=== PATIENT | female | born 1975 | race Hispanic/Latino ===

== ENCOUNTER 2020-12-31 10:38 | Emergency (ER) | payer SELFPAY ==
--- NOTE | 2020-12-31 13:21 | RAD REPORT ---
EXAM DESCRIPTION: RAD - Hand Left 3 View - 12/31/2020 1:02 pm CLINICAL HISTORY: PAIN COMPARISON: None FINDINGS: Mild soft tissue swelling is seen adjacent to the fifth metacarpal. No acute fracture or d islocation is evident.
--- NOTE | 2020-12-31 13:22 | EDPHYS ---
Physician Documentation [facility] Name: Laila Marroquin Age: 45 yrs Sex: Female : 1975 Arrival Date: 12/31/2020 Time: 10:43 Bed 24 Private MD: ED Physician Chase Patten HPI: 12/31 12:35 This 45 yrs old Female presents to ER via Ambulatory with complaints of Hand jr8 Pain. 12:35 The patient or guardian reports decreased range of motion, pain, tenderness. The jr8 complaints affect the left hand diffusely. Onset: The symptoms/episode began/occurred acutely, yesterday. Modifying factors: The symptoms are alleviated by nothing, the symptoms are aggravated by movement. Associated signs and symptoms: The patient has no apparent associated signs or symptoms. Severity of symptoms: At their worst the symptoms were moderate, in the emergency department the symptoms are unchanged. The patient has not experienced similar symptoms in the past. The patient has not recently seen a physician. Patient stated that she jammed her left middle finger while at work. Has had pain to finger and now the rest of her hand and wrist. Historical: - Allergies: 10:56 No Known Allergies; sv - PMHx: 10:56 Hypertension; borderline diabetes; ovarian CA; sv - PSHx: 10:56 ; R wrist sx; sv - Immunization history:: Flu vaccine is not up to date. - Social history:: Smoking status: Patient reports the use of cigarette tobacco products, smokes one-half pack cigarettes per day. ROS: 12:35 Constitutional: Negative for fever, chills, and weight loss. jr8 12:35 MS/extremity: Positive for decreased range of motion, pain, tenderness, of the left hand. 12:35 All other systems are negative. Exam: 12:35 Constitutional: This is a well developed, well nourished patient who is awake, alert, jr8 and in no acute distress. Cardiovascular: Regular rate and rhythm with a normal S1 and S2. No gallops, murmurs, or rubs. Normal PMI, no JVD. No pulse deficits. Respiratory: Lungs have equal breath sounds bilaterally, clear to auscultation and percussion. No rales, rhonchi or wheezes noted. No increased work of breathing, no retractions or nasal flaring. Skin: Warm, dry with normal turgor. Normal color with no rashes, no lesions, and no evidence of cellulitis. Neuro: Awake and alert, GCS 15, oriented to person, place, time, and situation. Cranial nerves II-XII grossly intact. Motor strength 5/5 in all extremities. Sensory grossly intact. Cerebellar exam normal. Normal gait. 12:35 Musculoskeletal/extremity: Extremities: grossly normal except: noted in the left hand: Patient has pain to flexor portion of entire left middle finger and along the moe areas. Decreased ROM noted to left hand secondary to pain. Full Active ROM present with normal sensation , Circulation is intact in all extremities. Vital Signs: 10:56 BP 152 / 83; Pulse 76; Resp 17; Temp 97.8; Pulse Ox 97% ; Weight 74.84 kg; Height 5 ft. sv 3 in. (160.02 cm); Pain 10/10; 12:08 BP 146 / 87; Pulse 78; Resp 16; Pulse Ox 100% on R/A; vg1 10:56 Body Mass Index 29.23 (74.84 kg, 160.02 cm) sv MDM: 12:03 Patient medically screened. jr8 13:21 Data reviewed: vital signs, nurses notes, radiologic studies, plain films, and as a jr8 result, I will discharge patient. Data interpreted: Pulse oximetry: on room air is 100 %. Interpretation: normal. Counseling: I had a detailed discussion with the patient and/or guardian regarding: the historical points, exam findings, and any diagnostic results supporting the discharge/admit diagnosis, radiology results, the need for outpatient follow up, a hand specialist, to return to the emergency department if symptoms worsen or persist or if there are any questions or concerns that arise at home. 13:21 ED course: Continue to wear hand brace and follow up with ortho. Take NSAIDs for pain. jr8 Rest hand with ice and heat alternating for comfort. . 12/31 12:20 Order name: XRAY Hand LEFT 3 View; Complete Time: 13:23 vg1 Administered Medications: No medications were administered Disposition: 01/01 06:03 Co-signature as Attending Physician, Chase Patten MD I agree with the assessment and kdr plan of care. Disposition: 12/31/20 13:22 Discharged to Home. Impression: Sprain of other part of left wrist and hand. - Condition is Stable. - Discharge Instructions: Hand Pain. - Prescriptions for Ibuprofen 800 mg Oral Tablet - take 1 tablet by ORAL route every 12 hours As needed take with food; 20 tablet. - Medication Reconciliation Form, Thank You Letter, Antibiotic Education, Prescription Opioid Use, Work release form form. - Follow up: Thomas Lai MD; When: 2 - 3 days; Reason: Recheck today's complaints, Continuance of care, Re-evaluation by your physician. - Problem is new. - Symptoms have improved. Signatures: Dispatcher [employer] EDNubia Napier, RN RN sv Chase Patten MD MD [facility] Sundar Hope PA PA jr8 Angie Osorio RN RN vg1 Corrections: (The following items were deleted from the chart) 12/31 13:49 13:22 12/31/2020 13:22 Discharged to Home. Impression: Sprain of other part of left vg1 wrist and hand. Condition is Stable. Forms are Medication Reconciliation Form, Thank You Letter, Antibiotic Education, Prescription Opioid Use. Follow up: Thomas Lai; When: 2 - 3 days; Reason: Recheck today's complaints, Continuance of care, Re-evaluation by your physician. Problem is new. Symptoms have improved. jr8
--- NOTE | 2020-12-31 13:22 | ER ---
Nurse's Notes [facility] Name: Laila Marroquin Age: 45 yrs Sex: Female : 1975 Arrival Date: 12/31/2020 Time: 10:43 Bed 24 Private MD: Diagnosis: Sprain of other part of left wrist and hand Presentation: 12/31 10:56 Chief complaint: Patient states: Left hand pain increasing since Monday. Thought she sv jammed her mid finger at work. Now the whole hand hurts, can barely move it or make a fist. Coronavirus screen: Client denies travel out of the [place] in the last 14 days. At this time, the client does not indicate any symptoms associated with coronavirus-19. Ebola Screen: Patient denies travel to an Ebola-affected area in the 21 days before illness onset. Initial Sepsis Screen: Does the patient meet any 2 criteria? No. Patient's initial sepsis screen is negative. Does the patient have a suspected source of infection? Yes: Bone or joint infection. Risk Assessment: Do you want to hurt yourself or someone else? Patient reports no desire to harm self or others. Onset of symptoms was December 28, 2020. 10:56 Method Of Arrival: Ambulatory sv 10:56 Acuity: FLACO 3 sv Historical: - Allergies: 10:56 No Known Allergies; sv - PMHx: 10:56 Hypertension; borderline diabetes; ovarian CA; sv - PSHx: 10:56 ; R wrist sx; sv - Immunization history:: Flu vaccine is not up to date. - Social history:: Smoking status: Patient reports the use of cigarette tobacco products, smokes one-half pack cigarettes per day. Screenin:22 Abuse screen: Denies threats or abuse. Nutritional screening: No deficits noted. vg1 Tuberculosis screening: No symptoms or risk factors identified. Fall Risk No fall in past 12 months (0 pts). No secondary diagnosis (0 pts). IV access (20 points). Ambulatory Aid- None/Bed Rest/Nurse Assist (0 pts). Gait- Normal/Bed Rest/Wheelchair (0 pts) Mental Status- Oriented to own ability (0 pts). Total Carreno Fall Scale indicates No Risk (0-24 pts). Assessment: 12:08 General: Appears in no apparent distress. comfortable, Behavior is calm, cooperative. vg1 Pain: Complains of pain in left hand Pain currently is 10 out of 10 on a pain scale. Pain began 2-3 days ago. Noted to be grimacing. Neuro: Level of Consciousness is awake, alert, obeys commands, Oriented to person, place, time, situation. Cardiovascular: Patient's skin is warm and dry. Pulses are palpable in right radial artery and left radial artery. Respiratory: Airway is patent Respiratory effort is even, unlabored. GI: No signs and/or symptoms were reported involving the gastrointestinal system. : No signs and/or symptoms were reported regarding the genitourinary system. EENT: No signs and/or symptoms were reported regarding the EENT system. Derm: Skin is intact, is healthy with good turgor. Musculoskeletal: Swelling present in left hand. 12:20 Reassessment: Received VO from Sundar PLATT to order Xray of left hand. vg1 Vital Signs: 10:56 BP 152 / 83; Pulse 76; Resp 17; Temp 97.8; Pulse Ox 97% ; Weight 74.84 kg; Height 5 ft. sv 3 in. (160.02 cm); Pain 10/10; 12:08 BP 146 / 87; Pulse 78; Resp 16; Pulse Ox 100% on R/A; vg1 10:56 Body Mass Index 29.23 (74.84 kg, 160.02 cm) sv ED Course: 10:43 Patient arrived in ED. mr 10:55 Arm band placed on. sv 10:59 Triage completed. sv 12:03 Sundar Hope PA is PHCP. jr8 12:03 Chase Patten MD is Attending Physician. jr8 12:19 Angie Osorio, MING is Primary Nurse. vg1 12:22 Patient has correct armband on for positive identification. Bed in low position. Call vg1 light in reach. Side rails up X 1. 13:02 XRAY Hand LEFT 3 View In Process Unspecified. EDMS 13:22 Thomas Lai MD is Referral Physician. jr8 13:49 No provider procedures requiring assistance completed. Patient did not have IV access vg1 during this emergency room visit. Administered Medications: No medications were administered Outcome: 13:22 Discharge ordered by . jr8 13:49 Discharged to home ambulatory. vg1 13:49 Condition: stable 13:49 Discharge instructions given to patient, Instructed on discharge instructions, the need for admit, medication usage, Demonstrated understanding of instructions, follow-up care, medications, Prescriptions given X 1. 13:49 Patient left the ED. vg1 Signatures: Dispatcher [employer] Nubia Campos, Dottie Vale RN, Josh, PA PA jr8 Garcia, Victoria, RN RN vg1
[2020-12-31 13:55] VITALS: TEMP 97.8
[2020-12-31 13:56] VITALS: BP 146/87; O2SAT 100
== END 2020-12-31 13:49 | disposition home or self-care (01) ==
LOC: ER 10:38
DX: S63.8X2A Sprain of other part of left wrist and hand, initial encounter (principal); X58.XXXA Exposure to other specified factors, initial encounter; Y93.89 Activity, other specified; Y92.89 Other specified places as the place of occurrence of the external cause; Y99.8 Other external cause status; I10 Essential (primary) hypertension; F17.210 Nicotine dependence, cigarettes, uncomplicated
CPT/HCPCS: 99283

== ENCOUNTER 2021-05-17 12:36 | Emergency (ER) | payer SELFPAY ==
--- OUTSIDE RECORDS SUMMARY | 2021-05-17 12:39 | XMS REPORT | Continuity of Care Document ---
:1975 Author Organization [facility] t Address [address] [place] [address] Care Team Providers Name Role Phone Unavailable Unavailable Unavailable Payers Payer Name Policy Type Policy Number Effective Date Expiration Date S ource Problems Condition Condition Condition Status Onset Resolution Last Treating Co mments Source Name Details Category Date Date Treatment Clinician Date Diabetes Diabetes Problem Active [facility] Hyperlipid Hyperlipid Problem Active [facility] Mixed Mixed Problem Active [place] anxiety An[facility] depressive Depressive e disorder Disorder Neuropathy Neuropathy Problem Active [facility] Hypertensi Hypertensi Problem Active [facility] ve ve Family disorder Disorder Practi c e Allergies, Adverse Reactions, Alerts Allergy Allergy Status Severity Reaction(s) Onset Inactive Treating Comm ents Source Name Type Date Date Clinician nitrofur DA Active U 2018- [facility] anto[facility] 9 [place] 00:[facility]: e 00 [facility] nitrofur DA Active U [facility] 1-14 [facility] 00:00: [place] 00 [facility] MACROBID DA Active U 2005- [facility] 6-20 [place] 00:[facility]: e 00 [facility] No Known DA Active U [facility] Contrast -20 [facility] All[facility] 00:00: e s 00 [facility] No Known DA Active U 2005-0 [facility] Food 6-20 [facility] Allergie 00:00: e s 00 [facility] No Known DA Active U 2005-0 [facility] Other -20 [facility] Allergie 00:00: e s [facility] nitrofur DA Active U 2000-0 [facility] antoin 6-16 [facility] 00:00: e 00 [facility] Social History Smoking Status Start Date Stop Date Source Light Tobacco Smoker [facility] Medications Ordered Filled Start Stop Current Ordering Indication Dosage Frequency Signature Comments Components Source Medication Medication Date Date Medication? Clinician (SIG) Name Name Henry 10 Vickyien 10 No 1 Q1D Ambien 10 [place] mg tablet mg tablet mg tablet Family Take 1 Take 1 Take 1 Practic tablet tablet tablet e every day every day every day by oral by oral by oral route. route. route. diclofenac diclofenac No diclofenac [facility] 1 % topical 1 % topical 1 % F amily gel APPLY 2 gel APPLY 2 topical Practic GRAM TO THE GRAM TO THE gel APPLY e AFFECTED AFFECTED 2 GRAM TO AREA(S) BY AREA(S) BY THE TOPICAL TOPICAL AFFECTED ROUTE 4 ROUTE 4 AREA(S) BY TIMES PER TIMES PER TOPICAL DAY DAY ROUTE 4 TIMES PER DAY meloxicam meloxicam No 1 Q1D meloxicam [facility] 15 mg 15 mg 15 mg Family tablet Take tablet Take tablet Practic 1 tablet 1 tablet Take 1 e every day every day tablet by oral by oral every day route. take route. take by oral with food with food route. take with food sertraline sertraline No 1 Q1D sertraline [facility] 50 mg 50 mg 50 mg Family tablet Take tablet Take tablet Practic 1 tablet 1 tablet Take 1 e every day every day tablet by oral by oral every day route. take route. take by oral one & a one & a route. half half take one & tablets tablets a half daily for daily for tablets one week, one week, daily for then then one week, increase to increase to then two tablets two tablets increase daily. daily. to two tablets daily. Xanax 0.5 Xanax 0.5 No 1 TID Xanax 0.5 [facility] mg tablet mg tablet mg tablet Family Take 1 Take 1 Take 1 Practic tablet 3 tablet 3 tablet 3 e times a day times a day times a by oral by oral day by route as route as oral route needed. needed. as needed. acetaminoph acetaminoph 2018- No 1 Q5H acetaminop [facility] en 300 en 300 12-22 hen 300 Family mg-codeine mg-codeine 00:00 mg-codeine Pract[facility] 30 mg 30 mg :00 30 mg e tablet Take tablet Take tablet 1 tablet 1 tablet Take 1 every 4-6 every 4-6 tablet hours by hours by every 4-6 oral route oral route hours by as needed. as needed. oral route as needed. atenolol 50 atenolol 50 2017- atenolol [facility] mg tablet mg tablet 12-22 50 mg Fam allyssa 00:00 tablet Practic :00 e atorvastati atorvastati 2017- atorvastat [facility] n 10 mg n 10 mg 12-22 in 10 mg Fami ly tablet tablet 00:00 tablet Practic :00 e clonazepam clonazepam 2017- clonazepam [facility] 0.5 mg 0.5 mg 12-22 0.5 mg Family tablet tablet 00:00 tablet Practic :00 e cyclobenzap cyclobenzap 2017- cyclobenza [facility] rine 10 mg rine 10 mg 12-22 cristela 10 Family tablet tablet 00:00 mg tablet Pract ic :00 e duloxetine duloxetine 2017- duloxetine [facility] 30 mg 30 mg 12-22 30 mg Family capsule,del capsule,del 00:00 capsule,de Practic ayed ayed :00 layed e release release release duloxetine duloxetine 2017- duloxetine [facility] 60 mg 60 mg 12-22 60 mg Family capsule,del capsule,del 00:00 capsule,de Practic ayed ayed :00 layed e release release release gabapentin gabapentin 2017- gabapentin [facility] 300 mg 300 mg 12-22 300 mg Family capsule capsule 00:00 capsule Pract ic :00 e gabapentin gabapentin 2017- gabapentin [facility] 800 mg 800 mg 12-22 800 mg Family tablet tablet 00:00 tablet Practic :00 e hydrochloro hydrochloro 2017- hydrochlor [facility] thiazide 25 thiazide 25 12-22 othiazide Family mg tablet mg tablet 00:00 25 mg Pra ctic :00 tablet e metformin metformin 2017- metformin [facility] ER 500 mg ER 500 mg 12-22 ER 500 mg Family tablet,exte tablet,exte 00:00 tablet,ext Practic nded nded :00 ended e release 24 release 24 release 24 hr hr hr Plan B Plan B 2018- No Plan B [facility] One-Step One-Step 12-22 One-Step Fa tracey 1.5 mg 1.5 mg 00:00 1.5 mg Practic tablet tablet :00 tablet e polyethylen polyethylen polyethyle [facility] e glycol e glycol 12-22 ne glycol F amily 3350 17 3350 17 00:00 3350 17 Pract ic gram/dose gram/dose :00 gram/dose e oral powder oral powder oral powder Synthroid Synthroid Synthroid [facility] 50 mcg 50 mcg 12-22 50 mcg Family tablet tablet 00:00 tablet Practic :00 e trazodone trazodone trazodone [facility] 100 mg 100 mg 12-22 100 mg Family tablet tablet 00:00 tablet Practic :00 e Immunizations Ordered Immunization Filled Immunization Date Status Commen ts Source Name Name influenza, influenza, 2016-11-27 Completed [facility] unspecified unspecified 00:00:00 Practice formulation formulation Vital Signs Vital Name Observation Time Observation Value Comments Source BP Diastolic 2018-02-27 00:00:00 90 mm[Hg] [facility] Height 2018-02-27 00:00:00 63 [in_i] [facility] BMI (Body Mass 2018-02-27 00:00:00 29.1 kg/m2 [facility] e Family Index) Practice BP Systolic 2018-02-27 00:00:00 126 mm[Hg] [facility] Body Weight 2018-02-27 00:00:00 164 [lb_av] [facility] BP Diastolic 2017-12-22 00:00:00 80 mm[Hg] [facility] Height 2017-12-22 00:00:00 63 [in_i] [facility] Practice BMI (Body Mass 2017-12-22 00:00:00 27.1 kg/m2 [facility] e Family Index) Practice BP Systolic 2017-12-22 00:00:00 130 mm[Hg] [facility] Body Weight 2017-12-22 00:00:00 153 [lb_av] [facility] Procedures Procedure Date / Time Performed Performing Clinician Sourc e Hand Surgery 2015-11-27 00:00:00 [facility] Woody gallegos Practice Tubal Ligation 2000-11-27 00:00:00 [facility] Woody gallegos Practice Delivery 2000-11-27 00:00:00 [facility] Vanessa webb Practice Encounters Start End Encounter Admission Attending Care Care Encounter Source Date/Time Date/Time Type Type Clinicians Facility Department ID 2019-12-07 2019-12-07 Emergency E [id number] 07:06:00 07[facility]06[facility] [facility] 2019-07-31 2019-07-31 Emergency E [id number] 07:50:00 07:50:[address] [facility] 2019-03-23 2019-03-23 Emergency E [id number] 2018-02-27 2018-02-27 [facility] [place] - [id number] [facility]00 [facility] [id number] [facility] [address] [facility] [place] [address] , Ph. 2017-12-22 2017-12-22 Laureen [facility] [place] - [id number] [facility] 00:00:00 00:00:00 Yeimy Tomas [facility] Woody gallegos MD: [id number] [facility] [address] [facility] [address] , Ph. Results Test Description Test Time Test Comments Results Result Comments Source STREPTOCOCCUS PCR SCREEN 2019-07-29 15:40:00 Test Item Value Reference Range Interpretation Comme nts STREPTOCOCCUS DYSGALACTIAE (test code = STREPGC) NEGATIVE FOR G/C N EGATIVE STREPA MOLECULAR (test code = STREPAMOL) POSITIVE FOR GRP A NEGATIV E URINE HCG TRIAGE (ER ONLY)2019-07-29 12:59:00 Test Item Value Reference Range Interpretation Comments URINE HCG TRIAGE (ER ONLY) (test Negative code = HCGTRIAGE) Urine Test Result: NEGATIVEAre internal controls (presence of a control line & clear background) OK? YLot # of HCG Test Kit: [id number] Date of Kit: [id number] Performed by: SARAH Rivera Perfomed on: 07/29/19
[2021-05-17] MEDS ORDERED: HYDROCODONE/APAP 5/325 MG TAB ONE (16:00)
[2021-05-17] MEDS ORDERED: dexAMETHasone 10 MG/ML VIAL ONE (16:00)
--- NOTE | 2021-05-17 16:24 | RAD REPORT ---
EXAM DESCRIPTION: RAD - Elbow Left 3 View - 05/17/2021 4:13 pm CLINICAL HISTORY: PAIN Pain and swelling COMPARISON: No comparisons FINDINGS: No fracture or dislocation seen.
--- NOTE | 2021-05-17 16:51 | EDPHYS ---
Physician Documentation [facility] Name: Laila Marroquin Age: 46 yrs Sex: Female : 1975 Arrival Date: 05/17/2021 Time: 12:38 Bed 27 Private MD: ED Physician Wandy Adan HPI: 05/17 15:49 This 46 yrs old Female presents to ER via Ambulatory with complaints of Arm pm1 Problem - numbness. 15:49 The patient or guardian complains of pain, that is acute. The complaints affect the pm1 left elbow. 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 Onset: The symptoms/episode began/occurred 4 day(s) ago. Treatment prior to arrival includes: over the counter medications, NSAIDS. Modifying factors: The symptoms are alleviated by remaining still, the symptoms are aggravated by movement, bending arm. Associated signs and symptoms: Pertinent positives: numbness to L 4th and 5th fingers. Severity of symptoms: in the emergency department the symptoms are actually worse. The patient has not experienced similar symptoms in the past. The patient has not recently seen a physician. No trauma. Historical: - Allergies: 12:57 No Known Allergies; ll1 - PMHx: 12:57 Borderline Diabetes; Hypertension; ovarian CA; ll1 - PSHx: 12:57 ; R wrist sx-nerve damage; ll1 - Immunization history:: Flu vaccine is not up to date. - Social history:: Smoking status: Patient reports the use of cigarette tobacco products, smokes one-half pack cigarettes per day. ROS: 15:49 Constitutional: Negative for fever, chills, and weight loss, Neck: Negative for injury, pm1 pain, and swelling, Cardiovascular: Negative for chest pain, palpitations, and edema, Respiratory: Negative for shortness of breath, cough, wheezing, and pleuritic chest pain, Abdomen/GI: Negative for abdominal pain, nausea, vomiting, diarrhea, and constipation. 15:49 MS/extremity: Positive for pain, of the left elbow. 15:49 Neuro: Positive for numbness, of the left little finger and left ring finger, Negative for weakness. 15:49 All other systems are negative. Exam: 15:49 Constitutional: This is a well developed, well nourished patient who is awake, alert, pm1 and in no acute distress. Head/Face: Normocephalic, atraumatic. Neck: Trachea midline, no thyromegaly or masses palpated, and no cervical lymphadenopathy. Supple, full range of motion without nuchal rigidity, or vertebral point tenderness. No Meningismus. 15:49 Back: No spinal tenderness. No costovertebral tenderness. Full range of motion. Skin: Warm, dry with normal turgor. Normal color with no rashes, no lesions, and no evidence of cellulitis. 15:49 Cardiovascular: Rate: normal, Rhythm: regular, Pulses: no pulse deficits are appreciated. 15:49 Respiratory: Exam negative for acute changes, respiratory distress, shortness of breath. 15:49 Musculoskeletal/extremity: Extremities: grossly normal except: noted in the left elbow lateral aspect: tenderness, There is no evidence of decreased ROM, deformity, swelling, Circulation is intact in all extremities. the left hand Sensation intact. 15:49 Neuro: Exam negative for acute changes, Orientation: is normal, Mentation: is normal, Motor: is normal, moves all fours. Vital Signs: 12:55 BP 138 / 97; Pulse 85; Resp 16; Temp 97.8; Pulse Ox 100% ; Weight 71.21 kg; Height 5 ll1 ft. 3 in. (160.02 cm); Pain 10/10; 15:23 BP 126 / 86; Pulse 79; Resp 20; Pulse Ox 100% on R/A; ak2 17:08 BP 119 / 75; Pulse 81; Resp 16; Pulse Ox 100% on R/A; ak2 12:55 Body Mass Index 27.81 (71.21 kg, 160.02 cm) ll1 MDM: 15:34 Patient medically screened. pm1 16:48 Data reviewed: vital signs. Data interpreted: Pulse oximetry: on room air is 100 %. pm1 Interpretation: normal. Counseling: I had a detailed discussion with the patient and/or guardian regarding: the historical points, exam findings, and any diagnostic results supporting the discharge/admit diagnosis, radiology results, the need for outpatient follow up, a orthopedic surgeon, to return to the emergency department if symptoms worsen or persist or if there are any questions or concerns that arise at home. 16:56 ED course: [place] reviewed. pm1 05/17 15:35 Order name: Elbow Left 3 View XRAY pm1 05/17 16:25 Order name: RAD; Complete Time: 16:39 EDMS 05/17 16:55 Order name: [place] pm1 Administered Medications: 15:39 Drug: Decadron (dexamethasone) 10 mg Route: IM; Site: left deltoid; ak2 15:39 Drug: [place] (HYDROcodone-acetaminophen) 5 mg-325 mg 1 tabs Route: PO; ak2 Disposition: 05/17/21 16:51 Discharged to Home. Impression: Lateral epicondylitis, left elbow. - Condition is Stable. - Discharge Instructions: Tennis Elbow. - Prescriptions for Tramadol 50 mg Oral Tablet - take 1 tablet by ORAL route every 8 hours as needed; 12 tablet. Medrol (Yuriy) 4 mg Oral Tablets, Dose Pack - take 1 tablet by ORAL route as directed - follow package instructions; 1 packet. - Medication Reconciliation Form, Thank You Letter, Antibiotic Education, Prescription Opioid Use, Work release form form. - Follow up: Emergency Department; When: As needed; Reason: Worsening of condition. Follow up: Private Physician; When: 2 - 3 days; Reason: Recheck today's complaints, Continuance of care, Re-evaluation by your physician. - Problem is new. - Symptoms have improved. Signatures: Dispatcher [employer] EDWI Sam Romero NP FULL ROLL INSPECTOR pm1 Talha Christianson RN RN ll1 Shukri Main ak2 Corrections: (The following items were deleted from the chart) 17:09 16:51 05/17/2021 16:51 Discharged to Home. Impression: Lateral epicondylitis, left ak2 elbow. Condition is Stable. Forms are Medication Reconciliation Form, Thank You Letter, Antibiotic Education, Prescription Opioid Use. Follow up: Emergency Department; When: As needed; Reason: Worsening of condition. Follow up: Private Physician; When: 2 - 3 days; Reason: Recheck today's complaints, Continuance of care, Re-evaluation by your physician. Problem is new. Symptoms have improved. pm1
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
[2021-05-17 17:45] VITALS: TEMP 97.8; O2SAT 100
[2021-05-17 17:49] VITALS: BP 119/75
== END 2021-05-17 17:09 | disposition home or self-care (01) ==
LOC: ER 12:36
DX: M77.12 Lateral epicondylitis, left elbow (principal); F17.210 Nicotine dependence, cigarettes, uncomplicated; I10 Essential (primary) hypertension; Z85.43 Personal history of malignant neoplasm of ovary; R73.03 Prediabetes
CPT/HCPCS: 96372; 99283; J1100

== ENCOUNTER 2023-01-14 22:03 | Emergency (ER) | payer SELFPAY ==
--- OUTSIDE RECORDS SUMMARY | 2023-01-14 22:05 | XMS REPORT | Continuity of Care Document ---
:1975 Author Organization [facility] t Address [address] [place] [address] Care Team Providers Name Role Phone Bernstein_H Attending Clinician Unavailable Bernstein_H Admitting Clinician Unavailable Payers Payer Name Policy Type Policy Number Effective Date Expiration Date Drea lorenzo [facility] [id number] 2017 HUMAN 00:00:00 - PRIME () Problems Condition Condition Condition Status Onset Resolution [...] Date Date Clinician nitrofur DA Active U 2018-0 [facility] an[facility]in 07-29 [facility] 00:00: e 00 [facility] [place] nitrofur DA Active U 2019-0 [facility] antoin 1-14 [facility] 00:00: [place] 00 [facility] MACROBID DA Active U 2006-0 [facility] 6-20 [facility] [facility] No Known DA Active U 2005-0 [facility] Contrast 6-20 [facility] Allergie 00:00: e s 00 [facility] No Known DA Active U 2005-0 [facility] Food 6-20 [facility] All[facility]ie 00:00: e s 00 [facility] No Known DA Active U 2005-0 [facility] Other 6-20 [facility] Allergie 00:00: e s 00 [facility] [place] nitrofur DA Active U 2000-0 [facility] antoin 6-16 [facility] 00:[facility]: e [facility] Social History Smoking Status Start Date Stop Date Source Light Tobacco Smoker [facility] Medications Ordered Filled Start Stop Current Ordering Indication Dosage Frequency Signature Comments Components Source Medication Medication Date Date Medication? Clinician (SIG) Name Name Henry 10 Ambien 10 No 1 Q1D Ambien 10 [place] mg tablet mg tablet mg tablet Family Take 1 Take 1 Take 1 Practic tablet tablet tablet e every day every day every day by oral by oral by oral route. route. route. diclofenac diclofenac No diclofenac [facility] 1 % topical 1 % topical 1 [...] DAY meloxicam meloxicam No 1 Q1D meloxicam [facility] 15 mg 15 mg 15 mg Family tablet Take tablet Take tablet Practic 1 tablet 1 tablet Take 1 e every day every day tablet by oral by oral every day route. take route. take by oral with food with food route. take with food sertraline sertraline No 1 Q1D sertraline [facility] 50 mg 50 mg 50 mg Family [...] route needed. needed. as needed. acetaminoph acetaminoph 2017- No 1 Q5H acetaminop [facility] en 300 en 300 12-22 hen 300 Family mg-codeine mg-codeine 00:00 mg-codeine Pract[facility] 30 mg 30 mg :00 30 mg e tablet Take tablet Take tablet 1 tablet 1 tablet Take 1 every 4-6 every 4-6 tablet hours by hours by every 4-6 oral route oral route hours by as needed. as needed. oral route as needed. atenolol 50 atenolol 50 2017- atenolol [facility] mg tablet mg tablet 12-22 50 mg Fam allyssa 00:00 tablet Practic :00 e atorvastati atorvastati 2017- atorvastat [facility] n 10 mg n 10 mg 12-22 in 10 mg Fami ly tablet tablet 00:00 tablet Practic :00 e clonazepam clonazepam 2017- clonazepam [facility] 0.5 mg 0.5 mg 12-22 0.5 mg Family tablet tablet 00:00 tablet Practic :00 e cyclobenzap cyclobenzap 2017- cyclobenza [facility] rine 10 mg rine 10 mg 12-22 cristela 10 Family tablet tablet 00:00 mg tablet Pract ic :00 e duloxetine duloxetine 2017- duloxetine [facility] 30 mg 30 mg 12-22 30 mg Family capsule,del capsule,del 00:00 capsulearchana Practic ayed ayed :00 layed e release release release duloxetine duloxetine 2017- duloxetine [facility] 60 mg 60 mg 12-22 60 mg Family capsule,del capsule,del 00:00 capsule,de Practic ayed ayed :00 layed e release release release gabapentin gabapentin 2017- gabapentin [facility] 300 mg 300 mg 12-22 300 mg Family capsule capsule 00:00 capsule Pract ic :00 e gabapentin gabapentin 2017- gabapentin [facility] 800 mg 800 mg 12-22 800 mg Family tablet tablet 00:00 tablet Practic :00 e hydrochloro hydrochloro 2017- hydrochlor [facility] thiazide 25 thiazide 25 12-22 othiazide Family mg tablet mg tablet 00:00 25 mg Pra ctic :00 tablet e metformin metformin 2017- metformin [facility] ER 500 mg ER 500 mg 12-22 ER 500 mg Family tablet,exte tablet,exte 00:00 tablet,ext Practic nded nded :00 ended e release 24 release 24 release 24 hr hr hr Plan B Plan B 2017- Plan B [facility] One-Step One-Step 12-22 One-Step Fa tracey 1.5 mg 1.5 mg 00:00 1.5 mg Practic tablet tablet :00 tablet e polyethylen polyethylen polyethyle [facility] e glycol e glycol 12-22 ne glycol F amily 3350 17 3350 17 00:00 3350 17 Pract ic gram/dose gram/dose :00 gram/dose e oral powder oral powder oral powder Synthroid Synthroid Synthroid [facility] 50 mcg 50 mcg 12-22 50 mcg Family tablet tablet 00:00 tablet Practic :00 e trazodone trazodone trazodone [facility] 100 mg 100 mg 12-22 100 mg Family tablet tablet 00:00 tablet Practic :00 e Immunizations Ordered Immunization Filled Immunization Date Status Commen Source Name Name influenza, influenza, 2016-11-27 Completed [facility] unspecified unspecified 00:00:00 Practice formulation formulation Vital Signs Vital Name Observation Time Observation Value Comments Source BP Diastolic 2018-02-27 00:00:00 90 mm[Hg] [facility] Height 2018-02-27 00:00:00 63 [in_i] [facility] BMI (Body Mass 2018-02-27 00:00:00 29.1 kg/m2 [facility] Family Index) Practice BP Systolic 2018-02-27 00:00:00 126 mm[Hg] [facility] Body Weight 2018-02-27 00:00:00 164 [lb_av] [facility] BP Diastolic 2017-12-22 00:00:00 80 mm[Hg] [facility] Height 2017-12-22 00:00:00 63 [in_i] [facility] BMI (Body Mass 2017-12-22 00:00:00 27.1 kg/m2 [facility] Family Index) Practice BP Systolic 2017-12-22 00:00:00 130 mm[Hg] [facility] Body Weight 2017-12-22 00:00:00 153 [lb_av] [facility] Procedures Procedure Date / Time Performed Performing Clinician Sourc e Hand Surgery 2015-11-27 00:00:00 [facility] Practice Tubal Ligation 2000-11-27 00:00:00 [facility] Efra[facility] ly Practice Delivery 2000-11-27 00:00:00 [facility] Vanessa webb Practice Encounters Start End Encounter Admission Attending Care Care Encounter Source Date/Time Date/Time Type Type Clinicians Facility Department ID 2020-12-30 2020-12-30 Outpatient Bernstein_H [facility] [id number] [facility] 12:11:00 12:11:00 [id number] Family Practic e 2019-12-07 2019-12-07 Emergency E [facility] [id number] 07:06:00 [facility]06[facility] [facility] 2019-07-31 2019-07-31 Emergency E [facility] [id number] [facility] 07:50:00 07:50:[address] [facility] 2019-03-23 2019-03-23 Emergency E [facility] [id number] 11:18:00 11:18:[address] [facility] 2018-02-27 2018-02-27 [facility] [place] - [id number] [facility] 00:00:00 00:00:00 Jhony Nicolas MD: [id number] [facility] [place] [facility] [place] [address] , Ph. 2017-12-22 2017-12-[address] [facility] [place] - [id number] [facility] 00:00:00 00:00:00 Jhony Nicolas MD: [id number] [facility] [place] [address] , Ph. Results Test Description Test Time [...] OK? YLot # of HCG Test Kit: [id number] Date of Kit: [id number] Performed by: SARAH Rivera Perfomed on: 07/29/19
[2023-01-15] MEDS ORDERED: LORazepam 2 MG/ML VIAL ONE (00:23)
[2023-01-15 00:26] LABS: Absolute Lymphocytes (CBC) 2.4 K/uL (0.7-4.9); Hematocrit 45.7 % (36.0-45.0); Lymphocytes % 38.1 % (15.3-44.8); MCV 87.8 fL (80-100)
[2023-01-15 00:29] LABS: Protime INR 0.96
[2023-01-15 00:41] LABS: Urine Specific Gravity/Preg 1.015 (1.005-1.030)
[2023-01-15 00:45] LABS: ALT/SGPT 33 U/L (13-56); AST/SGOT 23 U/L (15-37); Albumin 4.1 g/dL (3.4-5.0); Alkaline Phosphatase 64 U/L (45-117); BUN Blood Urea Nitrogen 9 mg/dL (7-18); Bicarbonate 29 mmol/L (21-32); Bilirubin Direct 0.1 mg/dL (0-0.2); Bilirubin Total 0.2 mg/dL (0.2-1.0); Glomerular Filtration Rate 106 ml/min (=/>90); Glucose Level 114 mg/dL (74-106); Potassium 3.7 mmol/L (3.5-5.1); Protein, Total 8.7 g/dL (6.4-8.2); Sodium Level 141 mmol/L (136-145)
[2023-01-15 01:01] LABS: Barbiturates NEGATIVE (NEGATIVE); Benzodiazepines POSITIVE (NEGATIVE); Cocaine NEGATIVE (NEGATIVE); METHAMPHETAM NEGATIVE (NEGATIVE); Methadone NEGATIVE (NEGATIVE); Opiates NEGATIVE (NEGATIVE); Phencyclidine NEGATIVE (NEGATIVE); THC Cannibis POSITIVE (NEGATIVE)
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
[2023-01-15 04:50] LABS: Urine Blood Negative (Negative); Urine Glucose Negative (Negative); Urine Protein Negative (Negative); Urine Specific Gravity 1.015 (1.005-1.030)
[2023-01-15 11:52] VITALS: TEMP 98.1
[2023-01-15 11:53] VITALS: BP 171/93; O2SAT 100
== END 2023-01-15 11:48 | disposition home or self-care (01) ==
LOC: ER 22:03
DX: T14.91XA Suicide attempt, initial encounter (principal)
CPT/HCPCS: 36415; 80048; 80076; 80307; 81003; 81025; 85025; 85610; 85730; 96372; 99285; G0480